=== PATIENT | female | born 1965 | race Caucasian/White ===

== ENCOUNTER → 2019-10-30 | Outpatient (CLI) | payer OTHER ==
--- NOTE | 2019-10-30 13:21 | XR ---
EXAMINATION TYPE: XR lumbosacral spine min 4V DATE OF EXAM: 10/30/2019 COMPARISON: NONE HISTORY: 54-year-old female with low back pain TECHNIQUE: 5 views FINDINGS: 5 lumbar type vertebral bodies. No pars interarticularis defect. Facet arthropathy lower lumbar spine . Trace grade 1 anterolisthesis L4-L5. Accentuated lumbar lordosis. Trace grade 1 retrolisthesis at T 12-L1. Vertebral body heights are preserved. Some minimal posterior angulation at the sacrococcygeal junction. IMPRESSION: 1. Facet arthropathy lower lumbar spine with trace grade 1 anterolisthesis at L4-L5. 2. Accentuated lumbar lordosis and trace grade 1 retrolisthesis at T12-L1. 3. Slight posterior angulation at the sacrococcygeal junction could reflect an age indeterminate tail bone fracture. Clinically correlate.
--- NOTE | 2019-10-30 13:24 | XR ---
EXAMINATION TYPE: XR hand complete bilateral DATE OF EXAM: 10/30/2019 COMPARISON: NONE HISTORY: Pain TECHNIQUE: Three views are submitted. FINDINGS: The osseous structures are intact. Left hand: Mild narrowing of the radial carpal, MCP and DIP joints with no erosive changes. And there is no acute fracture or dislocation. Right hand: Severe arthropathy of the DIP joint second digit with mild arthropathy of all remaining D IP joints. Mild narrowing of all MCP joints and radiocarpal joint. No erosive changes. IMPRESSION: 1. Arthropathy bilaterally with most marked findings involving the DIP joint right second digit.
[2019-10-30 13:45] LABS: Basophils % (A) 1 %; Eosinophils # (A) 0.1 k/uL (0-0.7); Eosinophils % (A) 2 %; HGB 12.4 gm/dL (11.4-16.0); Lymphocytes # (A) 1.8 k/uL (1.0-4.8); Lymphocytes % (A) 48 %; MCH 30.8 pg (25.0-35.0); MCHC 31.8 g/dL (31.0-37.0); Mean Platelet Volume 9.9; Monocytes # (A) 0.2 k/uL (0-1.0); Monocytes % (A) 5 %; Neutrophils # (A) 1.6 k/uL (1.3-7.7); Neutrophils % (A) 41 %; Platelet Count 152 k/uL (150-450); RBC 4.02 m/uL (3.80-5.40); RDW 11.9 % (11.5-15.5); WBC 3.8 k/uL (3.8-10.6)
[2019-10-30 15:06] LABS: Erythrocyte Sedimentation Rate 4 mm/hr (0-20)
[2019-10-30 20:16] LABS: ALT 19 U/L (8-44); AST 20 U/L (13-35); African American GFR (CKD) 98.2 (60.0-200.0); Albumin/Globulin Ratio 1.87 (1.60-3.17); Alkaline Phosphatase 61 U/L (41-126); C Reactive Protein <0.4 mg/dL (0.0-0.8); Calcium 9.3 mg/dL (8.7-10.3); Carbon Dioxide 26.6 mmol/L (21.6-31.8); Chloride 110 mmol/L (96-109); Chol/HDL Ratio 3.05; Cholesterol 189 mg/dL (0-200); Globulin 2.3 g/dL (1.6-3.3); Glucose 82 mg/dL (70-110); LDL Cholesterol,Calculated 105.8 mg/dL (0.0-131.0); Non-African American GFR(CKD) 84.8 (60.0-200.0); Rheumatoid Factor, Qnt 7 IU/mL (0-15); Sodium 143 mmol/L (135-145); Total Bilirubin 0.3 mg/dL (0.3-1.2); Total Protein 6.6 g/dL (6.2-8.2)
[2019-10-30 20:44] LABS: Hepatitis C IgG Antibody Non-Reactive (Non-Reactive)
== END | disposition home or self-care (01) ==
LOC: LABWHC1 12:44
PROVIDERS: ATTEND Family Medicine
DX: M19.049 Primary osteoarthritis, unspecified hand (principal); M43.16 Spondylolisthesis, lumbar region; E03.9 Hypothyroidism, unspecified; Z20.9 Contact with and (suspected) exposure to unspecified communicable disease
CPT/HCPCS: 36415; 72110; 80053; 80061; 84439; 84443; 84481; 85025; 85652; 86038; 86140; 86431; 86800; 86803

== ENCOUNTER → 2020-02-01 | Outpatient (CLI) | payer OTHER ==
[2020-02-01 10:01] LABS: Basophils % (A) 1 %; Eosinophils # (A) 0.1 k/uL (0-0.7); Eosinophils % (A) 2 %; HGB 12.7 gm/dL (11.4-16.0); Lymphocytes # (A) 1.9 k/uL (1.0-4.8); Lymphocytes % (A) 28 %; MCH 31.2 pg (25.0-35.0); MCHC 32.5 g/dL (31.0-37.0); MCV 96.1 fL (80.0-100.0); Mean Platelet Volume 9.3; Monocytes # (A) 0.3 k/uL (0-1.0); Monocytes % (A) 4 %; Neutrophils # (A) 4.1 k/uL (1.3-7.7); Neutrophils % (A) 63 %; Platelet Count 195 k/uL (150-450); RBC 4.06 m/uL (3.80-5.40); WBC 6.5 k/uL (3.8-10.6)
[2020-02-01 16:34] LABS: African American GFR (CKD) 85.2 (60.0-200.0); Albumin 4.4 g/dL (3.80-4.90); Albumin/Globulin Ratio 1.76 (1.60-3.17); Anion Gap 7.6 mmol/L (4.00-12.00); BUN/Creat Ratio 15.56 Ratio (12.00-20.00); Calcium 9.8 mg/dL (8.7-10.3); Carbon Dioxide 26.4 mmol/L (21.6-31.8); Globulin 2.5 g/dL (1.6-3.3); Non-African American GFR(CKD) 73.5 (60.0-200.0); Potassium 4.2 mmol/L (3.5-5.5); Total Bilirubin 0.3 mg/dL (0.3-1.2); Total Protein 6.9 g/dL (6.2-8.2)
== END | disposition home or self-care (01) ==
LOC: LABWHC1 08:12
PROVIDERS: ATTEND Family Medicine
DX: E03.9 Hypothyroidism, unspecified (principal)
CPT/HCPCS: 36415; 80053; 84439; 84443; 84481; 85025

== ENCOUNTER → 2021-07-31 | Outpatient (CLI) | payer OTHER ==
--- NOTE | 2021-07-31 08:14 | CT ---
EXAMINATION TYPE: CT hip RT wo con DATE OF EXAM: 07/31/2021 COMPARISON: None available HISTORY: RT hip pain CT DLP: 297.70 mGycm Automated exposure control for dose reduction was used. TECHNIQUE: Multiplanar CT scan of the right hip without IV contrast administration with 3-D reconstru ction images. FINDINGS: Right proximal femoral fixation using 3 metallic screws. No evidence of prosthesis break. Slight defo rmity of the lateral aspect of the right femoral head. Minimal cortical irregularity at the anterolat eral aspect of the right femoral head best appreciated in image #27, series 3 which could be acute or chronic. No definite acute fracture line identified otherwise. Minimal acetabular osteophytosis, otherwise no significant degenerative changes of the right hip join t. Millimetric sclerotic focus within the right body of pubis likely representing a bone island. No g ross lytic or sclerotic bone lesion. Tiny right adnexal calcification. No right inguinal lymphadenopa thy. IMPRESSION: Right proximal femoral postsurgical changes as described above. The described cortical irregularity a long the anterolateral aspect of the right femoral head could be acute or chronic, please correlate c linically. Further bone scan assessment can be considered if clinically required.
== END | disposition home or self-care (01) ==
LOC: RADCTMAIN 06:59
PROVIDERS: ATTEND Orthopaedic Surgery
DX: M25.551 Pain in right hip (principal)

== ENCOUNTER → 2021-07-31 | Outpatient (CLI) | payer OTHER ==
[2021-07-31 10:02] VITALS: BP 140/80; PULSE 76; RESP 18; TEMP 98.2
--- NOTE | 2021-07-31 10:08 | P.CON ---
Consult Note - . Consult date: 07/31/21 Assessment/Plan:: HISTORY OF PRESENT ILLNESS: 56 -year-old female as a referral from Dr. Griffiths presents today with right hip pain status post femoral neck fracture and nail fixation due to work related injury or an evaluation. Patient states pain is 7 out of 10, dull, achy, constant in the lateral aspect of the right hip with radiation of pain down the right thigh to the right knee. Anus aggravated with lifting, bending and shoveling as patient admits to being a seasonal worker. Pain is relieved with medications, topicals, injections, ice, physical therapy in March 2021, repositioning and rest. Patient states she did not do physical therapy for very long due to pain. Patient states that she could not fulfill a home exercise regimen at home due to pain. PMH: HTN, GERD, OA, MDD, hypothyroidism, Seasonal Allergies PSH: R Femoral Neck Fx with Nail Fixation SH: / PPD Tobacco User, No ETOH use, No illicit drug use. FH: Non contributory All: NKDA Meds: See list REVIEW OF ORGAN SYSTEMS: CONSTITUTIONAL: No fevers or chills. No recent weight loss. HEENT: No visual acuity loss, eye pain, difficulties with hearing. No nosebleeds. No difficulty swallowing. RESPIRATORY: Denies any troubles with breathing or dyspnea on exertion. CARDIOVASCULAR: Denies any chest pain, palpitations, or recent heart attacks. GASTROINTESTINAL: Denies fatty food intolerance. Has change in bowel habits and gas bloat. GENITOURINARY: Denies any blood in urine. Has increased urinary frequency. NEUROLOGICAL: + numbness and tingling along the distal extremities. No seizure disorders or headaches. MUSCULOSKELETAL: + back pain SKIN: No skin cancer. No rash. PSYCHIATRIC: Denies current depression or suicidal thoughts. ENDOCRINE: Denies current thyroid disorders. Denies any blood sugar glucose intolerance. HEME/LYMPHATIC: Denies any lumps and bumps around the neck. History of deep venous thrombosis. ALLERGY/IMMUNOLOGY: No immunoglobulin therapy. No immune deficiencies. BREAST: Denies current breast lumps, pain or nipple discharge. Physical Examinations : Constitutional : Cooperative , not in acute distress . HEENT: Neck supple. No Lymphadenopathy. Normal thyroid size . Eyes no ptosis , no icterus, no photophobia . Hearing intact. Normal oropharynx. No Thrush. Respiratory : Chest clear to auscultations bilaterally. No wheezing. No rhonchi. Cardiovascular : Regular rate and rhythm , S1 / S2. No S3 . No S4. Gastrointestinal : Abdomen soft. No tenderness. Bowel sounds x 4. No organomegaly . Genitourinary : Deferred. Neurologic : Cranial nerve II to XII intact. No focal neurological deficits. Psychiatric : alert & oriented x 3. Matching mood & appropriate affect. Judgment & insight intact. Lymphatic No Lymphadenopathy. Musculoskeletal : Cervical Spine Motor strength in the deltoid and biceps: Normal right side. Normal Left side Motor strength biceps and the wrist extensors: Normal right side . Normal left side Motor strength in the triceps muscle: Normal right side. Normal left side Deep tendon reflexes: Normal at the biceps. Normal at Brachioradialis. Normal at triceps Cervical facet loading test: positive bilaterally Spurling test: positive bilaterally Neck distraction test: positive bilaterally Beba sign: positive bilaterally Lumbar spine Motor strength lower extremities ,thigh and legs 5/5 Right side , 5/5 Left side Deep tendon reflexes : Normal Knee Jerk. Normal Ankle Jerk Vertebral body tenderness over Lumbar facet Loading Test: positive Right / positive Left Range of motion of the lumbar spine Flexion 30 degrees, extension 10 degrees Straight Leg Raise test: Left/ Right positive at degree Vaibhav test: positive right / positive left. Severe tenderness over the Sacroiliac joint on the Right / Left sides Gaenslen test: positive bilaterally Seated flexion test: positive bilaterally. Right Hip Pain with flexion, Gaenslen's test, Vaibhav test. Tenderness to palpation over greater trochanter Imaging: CT R hip without contrast from 07/31/21 reviewed. Assessment/ Plan : Right hip intra-articular injection May need a series of 3, within a six-month period, for optimal pain relief Denies anticoagulant use. Denies medical history of diabetes mellitus. Risks, benefits of procedure discussed and patient verbalized understanding. All questions answered. I have spent greater than 50 minutes on patient care today. Dr Sterling was available by phone for the evaluation of this patient. The time was used to review the medical records including relevant urine studies and Prescription history (MAPs), review of the available imaging, evaluation and examination of the patient, coordination of care with the medical staff and if applicable referring physicians, as well as creation of the medical record PQRS Measure Charge Sheet Mode of Arrival: Ambulatory - Pain Location Right Hip Non-Pharmacological Interventions: Ice, Inactivity, Physical Therapy, Position/Reposition, Stretching Pharmacological Interventions: PRN Medication PQRS Narrative: Blood Pressure 140/80 Pain Intensity [Right Hip] 7 Scale Used Numeric (1 - 10) Hx Alcohol Use (MH) No
== END | disposition home or self-care (01) ==
LOC: PNWHC3 08:47
PROVIDERS: ATTEND Physician Assistant Medical
DX: S72.001D Fracture of unspecified part of neck of right femur, subsequent encounter for closed fracture with routine healing (principal); X58.XXXD Exposure to other specified factors, subsequent encounter
CPT/HCPCS: 99202

== ENCOUNTER → 2022-01-15 | Outpatient (CLI) | payer OTHER ==
--- NOTE | 2022-01-15 11:46 | CT ---
EXAMINATION TYPE: CT knee RT w con DATE OF EXAM: 01/15/2022 COMPARISON: Arthrogram injection same day HISTORY: 56-year-old female M25.561, Right knee pain TECHNIQUE: Contiguous axial scanning of the right knee performed after intra-articular administration of a Isovue-300 and sterile saline mixture into 1-1 ratio. Coronal/sagittal reconstructions performe d. CT DLP: 257 mGycm Automated exposure control for dose reduction was used. FINDINGS: There is adequate distention of the knee joint. There is a moderate-sized Smith's cyst measuring 4.8 x 2.7 cm . Extensor mechanism is intact. Along the medial suprapatellar gutter, there is a fat attenuating lesion measuring 3.6 cm craniocauda l by 1.9 cm wide by 3.7 cm AP. There is no contrast extending to this region, probably reflecting an extrasynovial location. Strandy soft tissue density and some more confluent soft tissue is present wi thin this lesion. There is mild to moderate cartilage fissuring throughout the mid weightbearing aspect of the medial c ompartment, for example, refer to coronal images 24, 22, and 19. Some focal blistering and minimal fissuring along the medial patellar facet articular cartilage, axia l image 28. No acute fracture, subluxation, or dislocation. Allowing for CT technique, the ACL appears to be grossly intact as does the PCL, MCL, and LCL complex . Again, allowing for CT technique, no obvious large tear of the menisci is seen. IMPRESSION: 1. MODERATE-SIZED SMITH'S CYST MEASURING 4.8 X 2.7 CM. 2. AN OVAL FAT ATTENUATING LESION MEASURING 3.7 X 3.6 X 1.9 CM ALONG THE MEDIAL SUPRAPATELLAR GUTTER, SUSPECTED LIPOMATOUS TUMOR OF THE EXTRASYNOVIAL PORTION OF THE JOINT. GIVEN THE STRANDING AND SOFT T ISSUE DENSITY WITHIN THIS LESION, CONSIDER ATYPICAL LIPOMATOUS TUMOR OR LOW-GRADE LIPOSARCOMA. IF THE RE WAS DIRECT IMPACT INJURY TO THIS LOCATION, SUPERIMPOSED SOFT TISSUE CONTUSION IS ALSO POSSIBLE. FU RTHER MRI EVALUATION CAN BE CONSIDERED. 3. MILD TO MODERATE IRREGULAR CARTILAGE LOSS ALONG THE MID WEIGHTBEARING ASPECT OF THE MEDIAL COMPART MENT. 4. NO ACUTE OSSEOUS ABNORMALITY SEEN.
--- NOTE | 2022-01-15 12:36 | FL ---
EXAMINATION TYPE: FL arthrogram knee RT fluoroscopic-guided arthrogram injection. DATE OF EXAM: 01/15/2022 HISTORY: 56-year-old female M25.561 MR right knee pain PROCEDURES: 1. Right knee fluoroscopy. 2. Right knee arthrogram. Total fluoroscopy time: 59 seconds Total images: 10. TECHNIQUE: The procedure, risks, and alternatives, were discussed with the patient, who requested that mary dumont. The consent form was signed, and teach-back occurred. The site/side of the procedure was marked with a line with participation by the patient. The accompan clark paperwork was verified for consistency. A directed history and physical exam was performed prior to the procedure. A critical pause was perfo rmed with assisting personnel just prior to the procedure, and the patient's identity was confirmed u sing 2 identifiers. Imaging guidance was utilized to select the precise skin entry point just prior to the procedure, west ng the lateral margin of the patellofemoral compartment. The right knee was prepped and draped in the usual sterile fashion and local 1% lidocaine anesthesia was instilled. Isra wrap was placed along the suprapatellar region. Under fluoroscopic guidance, a 22 gauge long needle was introduced into the patellofemoral compartment via a lateral approach. Appropr iate needle tip position was confirmed after a small amount of contrast injection. Approximately 25 ml of a 1-1 mixture of Isovue 300 and sterile saline was injected into the knee join t. The needle was then removed. The patient tolerated the procedure well. Isra wrap was removed. The p atient was allowed to move the knee. There was no immediate complication. After the procedure, the patient's condition was unchanged. Estimated blood loss was minimal. Patien t advised to monitor for signs of infection. IMPRESSION: Technically successful right knee arthrogram injection for CT. No immediate complication.
== END | disposition home or self-care (01) ==
LOC: RADFLMAIN 08:44
PROVIDERS: ATTEND Orthopaedic Surgery
DX: M25.561 Pain in right knee (principal)
CPT/HCPCS: 73580; 73701; J2001; Q9967

== ENCOUNTER → 2023-09-08 | Outpatient (CLI) | payer OTHER ==
--- NOTE | 2023-09-08 09:37 | XR ---
EXAMINATION TYPE: XR Hip Bilateral and AP pelvis DATE OF EXAM: 09/08/2023 COMPARISON: CT 07/31/2021 HISTORY: Hip pain TECHNIQUE: A single AP view of the pelvis is obtained. Two views of the bilateral hip are obtained. FINDINGS: There is a stable postsurgical change involving the right femur. A mild concentric narrowi ng of the left hip joint. No erosive changes. Benign-appearing vascular calcifications. Mild hypertrophic arthropathy left SI joint. No acute fract ure. No dislocation. IMPRESSION: 1. Stable postsurgical changes right hip. 2. Mild arthropathy left hip.
--- NOTE | 2023-09-08 09:38 | XR ---
EXAM TYPE: LUMBAR SPINE X RAY SERIES COMPARISON: 10/30/2019 HISTORY: Pain TECHNIQUE: 4 views are submitted. FINDINGS: Alignment is anatomic. The pedicles are intact. The transverse processes are intact. There is diff use osteopenia. There is bilateral SI joint arthropathy. Grade 1 anterolisthesis L4-L5 with multileve l facet arthropathy most marked at L4-5 and L5-S1. Severe degenerative disc disease at the thoracolum bar junction including T11-T12 and T12-L1. IMPRESSION: 1. Multilevel degenerative disc disease most marked at T11-T12 and T12-L1. 2. Multilevel facet arthropathy most marked at L4-5 and L5-S1 with grade 1 anterolisthesis L4-L5.
== END | disposition home or self-care (01) ==
LOC: RADXRMAIN 08:53
PROVIDERS: ATTEND Family Medicine
DX: M51.36 Other intervertebral disc degeneration, lumbar region (principal); R10.13 Epigastric pain; M16.12 Unilateral primary osteoarthritis, left hip; M47.816 Spondylosis without myelopathy or radiculopathy, lumbar region; M43.16 Spondylolisthesis, lumbar region
CPT/HCPCS: 72100; 73521

== ENCOUNTER → 2023-09-14 | Outpatient (CLI) | payer OTHER ==
--- NOTE | 2023-09-14 23:43 | US ---
EXAMINATION TYPE: US abdomen complete DATE OF EXAM: 09/14/2023 COMPARISON: NONE CLINICAL INDICATION: Female, 58 years old with history of R10.13 EPIGASTRIC PAIN; Nausea with no reli ef from medications x 4 months, Smoker, ? [place] HTN TECHNIQUE: Multiple sonographic images of the abdomen are obtained. FINDINGS: EXAM MEASUREMENTS: Liver Length: 11.5 cm Gallbladder Wall: 0.2 cm CBD: 0.3 cm Spleen: 10.3 cm Right Kidney: 12.5 x 4.7 x 4.8 cm Left Kidney: 11.5 x 4.8 x 5.2 cm BISCUIT [employer]ER NOTES: Pancreas: wnl Liver: wnl Gallbladder: wnl Evidence for sonographic Mcintyre's sign: No CBD: wnl Spleen: wnl Right Kidney: wnl Left Kidney: wnl Upper IVC: wnl Abd Aorta: wnl IMPRESSION: 1. No suspicious acute ultrasound abnormality of the abdomen.
== END | disposition home or self-care (01) ==
LOC: RADUSWWP 07:19
PROVIDERS: ATTEND Family Medicine
DX: R10.13 Epigastric pain (principal); M51.36 Other intervertebral disc degeneration, lumbar region; M16.9 Osteoarthritis of hip, unspecified
CPT/HCPCS: 76700

== ENCOUNTER → 2023-09-23 | Outpatient (CLI) | payer OTHER ==
[2023-09-23 17:48] LABS: Gliadin AB IgA, Deaminated Negative (Negative); Gliadin AB IgA, Unit <0.5 U/mL; Gliadin AB IgG, Deaminated Negative (Negative); Gliadin AB IgG, Unit <0.4 U/mL
[2023-09-23 20:29] LABS: Clam IgE <0.10 kU/L; Codfish IgE <0.10 kU/L; Egg White IgE <0.10 kU/L; Peanut IgE <0.10 kU/L; Scallop IgE <0.10 kU/L; Shrimp IgE <0.10 kU/L; Soybean IgE <0.10 kU/L; Walnut IgE (Food) <0.10 kU/L
[2023-09-23 20:53] LABS: Immunoglobulin E 9.62 IU/mL (0.00-114.00)
== END | disposition home or self-care (01) ==
LOC: LABWHC1 08:44
PROVIDERS: ATTEND Family Medicine
DX: E55.9 Vitamin D deficiency, unspecified (principal); R10.9 Unspecified abdominal pain
CPT/HCPCS: 36415; 82306; 82785; 83516; 86003